=== PATIENT | female | born 1960 | race Caucasian/White ===

== ENCOUNTER → 2018-03-08 | Outpatient (CLI) | payer BC ==
--- NOTE | 2018-03-08 18:18 | XR ---
EXAMINATION TYPE: XR clavicle RT DATE OF EXAM: 03/08/2018 COMPARISON: NONE HISTORY: Pain TECHNIQUE: 2 views FINDINGS: I see no fracture nor dislocation. Joint spaces appear normal. There is some spurring at th e medial and of the clavicle. IMPRESSION: There is mild spurring at the sternoclavicular joint involving the clavicle.
== END ==
LOC: RADXRMAIN 17:31
PROVIDERS: ATTEND Physician Assistant
DX: M75.91 Shoulder lesion, unspecified, right shoulder (principal)

== ENCOUNTER → 2021-01-20 | Outpatient (CLI) | payer BC | END | disposition home or self-care (01) | LOC: LABWHC1 15:00 | PROVIDERS: ATTEND Family Medicine | DX: Z20.822 Contact with and (suspected) exposure to COVID-19 (principal); R05 Cough | CPT/HCPCS: U0003; C9803; U0005 ==

== ENCOUNTER → 2022-09-22 | Outpatient (CLI) | payer BC ==
--- NOTE | 2022-09-25 15:26 | MM ---
Reason for Exam: Screening (asymptomatic). Last mammogram was performed 15 year(s) and 6 month(s) ago. Patient History: Menarche at age 11. First Full-Term at age 21. Postmenopausal. Hormonal Contraceptives for 10 years from age 35 until age 45. Risk Values: Vicki 5 year model risk: 1.4%. NCI Lifetime model risk: 5.8%. Prior Study Comparison: 11/02/2005 Bilateral Diagnostic Mammogram, [facility]. 03/04/2007 Bilateral Diagnostic Mammogram, [facility]. 11/11/2007 Right Diagnostic Mammogram, [facility]. Tissue Density: There are scattered fibroglandular densities. Findings: Analyzed By CAD. There is 4 to 5 mm round spherical mass in the middle depth central left breast and a 4 mm obscured mass in the middle depth outer upper right breast. Overall Assessment: Incomplete: need additional imaging evaluation, BI-RAD 0 Management: Diagnostic Breast Ultrasound of both breasts. Special View Mammogram of both breasts. Return for additional spot views and true lateral views along with diagnostic ultrasound evaluation. Patient should continue monthly self-breast exams. A clinical breast exam by your physician is recommended on an annual basis. This exam should not preclude additional follow-up of suspicious palpable abnormalities. Note on Vicki scores and lifetime risk: 1. A Vicki score greater than 3% is considered moderate risk. If this is the case, consider specialist referral to assess eligibility for a risk reducing agent. 2. If overall lifetime risk for the development of breast cancer is 20% or higher, the patient may qualify for future screening with alternating mammogram and breast MRI. Electronically signed and approved by: Matthew Wells M.D.
== END | disposition home or self-care (01) ==
LOC: RADMAMWWP 13:39
PROVIDERS: ATTEND Family Medicine
DX: Z12.31 Encounter for screening mammogram for malignant neoplasm of breast (principal); Z78.0 Asymptomatic menopausal state
CPT/HCPCS: 77063; 77067

== ENCOUNTER → 2022-10-25 | Outpatient (CLI) | payer BC ==
--- NOTE | 2022-10-25 15:26 | USB ---
Reason for Exam: Additional evaluation requested from abnormal screening. Patient History: Menarche at age 11. First Full-Term at age 21. Postmenopausal. Hormonal Contraceptives for 10 years from age 35 until age 45. Risk Values: Vicki 5 year model risk: 1.4%. NCI Lifetime model risk: 5.8%. Technique: Method: Targeted. Prior Study Comparison: 03/04/2007 Bilateral Diagnostic Mammogram, [facility]. 11/11/2007 Right Diagnostic Mammogram, [facility]. 09/22/2022 Bilateral MG 3D screening mammo w/cad, [facility]. Findings: The upper outer quadrant of the right breast, the upper section of the breast of the left breast, the axilla of both breasts and the retroareolar of both breasts were scanned. Targeted right breast ultrasound upper outer quadrant 9 to 12:00 position including the subareolar region and axilla. No solid or cystic lesion or axillary lymphadenopathy. Targeted left breast ultrasound inferior half from 9:00 to 3:00 including the subareolar region and axilla. At the 1:00 position, 5 cm from the nipple, there is a tiny 4 mm cyst, possible mammographic correlate. No other solid or cystic lesion or axillary lymphadenopathy. Overall Assessment: Probably benign, BI-RAD 3 Management: Diagnostic Mammogram of both breasts in 6 months. A clinical breast exam by your physician is recommended on an annual basis and results should be correlated with mammographic findings. This exam should not preclude additional follow-up of suspicious palpable abnormalities. Results were given to the patient verbally at the time of exam. Electronically signed and approved by: Ryanne Barker M.D. Radiologist
== END | disposition home or self-care (01) ==
LOC: RADUSWWP 14:14
PROVIDERS: ATTEND Family Medicine
DX: R92.8 Other abnormal and inconclusive findings on diagnostic imaging of breast (principal); Z78.0 Asymptomatic menopausal state

== ENCOUNTER → 2024-04-04 | Outpatient (CLI) | payer BC ==
--- NOTE | 2024-04-05 18:00 | BD ---
EXAMINATION TYPE: Axial Bone Density DATE OF EXAM: 04/04/2024 CLINICAL HISTORY: 64 years old Female. ICD-10 CODE: N60.09 CYST I34.1 NONRHEUMATIC MITRAL (VALVE) [place] OL , Additional History: Height: 64 in Weight: 158 lbs EXAM MEASUREMENTS: Bone mineral densitometry was performed using the [employer] System. Bone mineral density as measured about the Lumbar spine is: ----- L1-L4(G/cm2): 1.042 T Score Values are as follows: ----- L1: -1.3 ----- L2: -1.1 ----- L3: -0.9 ----- L4: -1.4 ----- L1-L4: -1.1 Z Score Values are as follows: ----- L1: 0.1 ----- L2: 0.3 ----- L3: 0.5 ----- L4: 0.0 ----- L1-L4: 0.2 Bone mineral density has: Decreased -9.2% since study of: 04/13/2008 Bone mineral density about the R hip (g/cm2): 0.920 Bone mineral density about the L hip (g/cm2): 0.887 T Score values are as follows: -----R Neck: -1.4 -----L Neck: -1.9 -----R Total: -0.7 -----L Total: -1.0 Z Score values are as follows: -----R Neck: 0.0 -----L Neck: -0.5 -----R Total: 0.4 -----L Total: 0.1 Bone mineral density has: Decreased -4.2% since study of: 04/13/2008 FRAX%s: The graph provided illustrates a 10.5% chance for a major osteoporotic fx and a 1.5% chance f or the hips probability for fx in 10 years time. IMPRESSION: Osteopenia (T Score between -2.5 and -1). There is slightly increased risk of fracture and the patient may be considered for treatment. Re-Screen 2-5 years. NOTE: T-SCORE=SD OF THE YOUNG ADULT MEAN. [facility]: LJ, 04/05/2024 5:57 PM
--- NOTE | 2024-04-07 11:37 | CA ---
Transthoracic Echo Report Name: Love Arciniega Age: 64 Gender: F : 1960 Exam Date: 04/04/2024 15:03 Exam Location: [facility] Ht (in): 64 Wt (lb): 157 Ordering Physician: David Horn DO Attending/Referring Phys: Account Group Supervisor Chey Botello RDCS Procedure CPT: Indications: N60.09 CYST I34.1 NONRHEUMATIC MITRAL (VALVE) PROL Cardiac Hx: Technical Quality: Fair Contrast 1: Total Dose (mL): Contrast 2: Total Dose (mL): MEASUREMENTS (Male / Female) Normal Values 2D ECHO LV Diastolic Diameter PLAX 4.0 cm 4.2 - 5.9 / 3.9 - 5.3 cm LV Systolic Diameter PLAX 2.5 cm IVS Diastolic Thickness 0.8 cm 0.6 - 1.0 / 0.6 - 0.9 cm LVPW Diastolic Thickness 0.8 cm 0.6 - 1.0 / 0.6 - 0.9 cm LV Relative Wall Thickness 0.4 LVOT Diameter 2.0 cm LV Diastolic Volume MOD BP 83.9 cm??? 67 - 155 / 56 - 104 cm??? LV Systolic Volume MOD BP 30.5 cm??? 22 - 58 / 19 - 49 cm??? LV Ejection Fraction MOD BP 63.6 % >= 55 % LV Cardiac Index MOD BP 2270.4 cm???/min???m??? LV Diastolic Volume MOD 4C 71.9 cm??? LV Systolic Volume MOD 4C 29.4 cm??? LV Ejection Fraction MOD 4C 59.1 % LV Cardiac Index MOD 4C 1807.0 cm???/min???m??? LV Diastolic Length 4C 7.2 cm LV Systolic Length 4C 5.9 cm LV Diastolic Volume MOD 2C 90.7 cm??? LV Systolic Volume MOD 2C 30.7 cm??? LV Ejection Fraction MOD 2C 66.2 % LV Cardiac Index MOD 2C 2554.9 cm???/min???m??? LV Diastolic Length 2C 7.7 cm LV Systolic Length 2C 6.2 cm LA Volume 34.2 cm??? 18 - 58 / 22 - 52 cm??? LA Volume Index 18.9 cm???/m??? 16 - 28 cm???/m??? Ascending Aorta Diameter 2.7 cm DOPPLER AV Peak Velocity 83.8 cm/s AV Peak Gradient 2.8 mmHg AV Mean Velocity 54.9 cm/s AV Mean Gradient 1.4 mmHg AV Velocity Time Integral 17.1 cm LVOT Peak Velocity 76.3 cm/s LVOT Peak Gradient 2.3 mmHg LVOT Velocity Time Integral 16.5 cm LVOT Stroke Volume 49.6 cm??? LVOT Stroke Volume Index 28.1 ml/m??? LVOT Cardiac Index 2110.9 cm???/min???m??? AV Area Cont Eq vti 2.9 cm??? AV Area Cont Eq pk 2.7 cm??? MV Area PHT 4.3 cm??? Mitral E Point Velocity 70.9 cm/s Mitral A Point Velocity 56.0 cm/s Mitral E to A Ratio 1.3 MV Deceleration Time 174.8 ms TR Peak Velocity 254.1 cm/s TR Peak Gradient 25.8 mmHg Right Atrial Pressure 10.0 mmHg Pulmonary Artery Systolic Pressu 35.8 mmHg Right Ventricular Systolic Press 35.8 mmHg PV Peak Velocity 69.7 cm/s PV Peak Gradient 1.9 mmHg FINDINGS Left Ventricle Left ventricular ejection fraction is estimated at 60-65 %. Left ventricular cavity size normal. Left ventricular wall thickness normal. No obvious regional wall motion abnormalities. Right Ventricle Normal right ventricular size and function. Borderline elevated right ventricular systolic pressure. Right Atrium Normal right atrial size. Left Atrium Normal left atrial size. Mitral Valve Mitral valve thickened. Mild thickening/calcification of the anterior mitral valve leaflet. No evidence for mitral valve prolapse. No mitral stenosis. Trace mitral regurgitation. Aortic Valve Trileaflet aortic valve. Aortic valve sclerosis. No aortic valve stenosis or regurgitation. Tricuspid Valve Structurally normal tricuspid valve. No tricuspid stenosis. Mild tricuspid regurgitation. Pulmonic Valve Structurally normal pulmonic valve. No pulmonic stenosis. No pulmonic regurgitation. Pericardium No pericardial effusion. Aorta Normal size aortic root and proximal ascending aorta. CONCLUSIONS Normal biventricular systolic function Thickened anterior mitral leaflet. No mitral stenosis. Mild mitral regurgitation Previewed by: Dr. Frank Almonte MD (Electronically Signed) Final Date: 07 April 2024 11:36
== END | disposition home or self-care (01) ==
LOC: RADMAMWWP 13:30
PROVIDERS: ATTEND Family Medicine
DX: I34.1 Nonrheumatic mitral (valve) prolapse (principal); N60.09 Solitary cyst of unspecified breast; Z78.0 Asymptomatic menopausal state; M85.89 Other specified disorders of bone density and structure, multiple sites; I35.8 Other nonrheumatic aortic valve disorders; I34.0 Nonrheumatic mitral (valve) insufficiency; I37.1 Nonrheumatic pulmonary valve insufficiency
CPT/HCPCS: 77062; 77066; 77080; 93306